=== PATIENT | female | born 1990 | race Caucasian/White ===

== ENCOUNTER 2018-07-05 16:52 | Emergency (ER) | payer OTHER ==
[~2018-07-05] VITALS: Ht 149.9 cm; Wt 81.8 kg
[2018-07-05] MEDS ORDERED: PERTUSS(ACELL),DIPH,TET VAC/PF 0.5 ML VIAL IM ONE (20:00)
[2018-07-05 20:24] VITALS: BP 138/85
== END 2018-07-05 20:32 | disposition home or self-care (01) ==
LOC: EMS 16:53
DX: S81.851A Open bite, right lower leg, initial encounter (principal); S80.11XA Contusion of right lower leg, initial encounter; R03.0 Elevated blood-pressure reading, without diagnosis of hypertension; W54.0XXA Bitten by dog, initial encounter; Y93.89 Activity, other specified; Y92.89 Other specified places as the place of occurrence of the external cause; Y99.8 Other external cause status